=== PATIENT | male | born 1960 ===

== ENCOUNTER 2017-09-19 12:16 | Emergency (ER) | payer OTHER ==
[2017-09-19 12:25] VITALS: BP 113/82; PULSE 84; RESP 20; TEMP 99.9; O2SAT 99
[2017-09-19] MEDS ORDERED: Albuterol-Ipratrop 3 mg / 0.5 (3 ml) UD INH STA (12:34)
[2017-09-19] MEDS ORDERED: Sodium Chloride 0.9% 1,000 ML IV STA (12:35)
--- NOTE | 2017-09-19 12:56 | RAD ---
HISTORY: cp COMPARISON: No prior. TECHNIQUE: Chest PA and lateral FINDINGS: LUNGS: No active pulmonary disease. PLEURA: No significant pleural effusion identified. No pneumothorax apparent. CARDIOVASCULAR: Normal. OSSEOUS STRUCTURES: No significant abnormalities. VISUALIZED UPPER ABDOMEN: Normal. OTHER FINDINGS: None. IMPRESSION: No active disease.
--- NOTE | 2017-09-19 13:11 | ED PDOC ---
HPI: General Adult Time Seen by Provider: 09/19/17 12:31 Chief Complaint (Nursing): Flu-like Symptoms Chief Complaint (Provider): Flu-like Symptoms History Per: Patient History/Exam Limitations: no limitations Onset/Duration Of Symptoms: Days (x 4) Current Symptoms Are (Timing): Still Present Additional Complaint(s): Mr. Alvarez is a 56 year old male, with a history of cardiac stent placement, who presents to the emergency department with flu-like symptoms for 4 days. Patient reports symptoms started out with a cold. Patient reports symptoms are associated with coughing and body aches that developed 2 days ago. Patient states he developed back pain today. Patient reports post-tussive chest pain. Reports subjective fever for 2 days. Denies having asthma, nausea, vomiting, headache or shortness of breath. PMD: No Family Provider Past Medical History Reviewed: Historical Data, Nursing Documentation, Vital Signs Vital Signs: Last Vital Signs Temp 99.9 F H 09/19/17 12:20 Pulse 84 09/19/17 12:20 Resp 20 09/19/17 12:20 BP 113/82 09/19/17 12:20 Pulse Ox 99 09/19/17 13:53 - Medical History PMH: No Chronic Diseases Denies: Asthma - Surgical History Other surgeries: heart stent - Family History Family History: States: Unknown Family Hx - Home Medications Home Medications: Ambulatory Orders Medication Instructions Recorded Albuterol 0.083% [Albuterol 0.083% 2.5 mg IH Q8 PRN #21 neb 09/19/17 Inhal Yanira (2.5 mg/3 ml) UD] Mask, Face [Nebulizer Aerosol Mask 1 dev XX PRN PRN #1 dev 09/19/17 Adult] Nebulizer [Aeroeclipse II] 1 each MC Q8 PRN #1 each 09/19/17 Oseltamivir [Tamiflu] 75 mg PO BID #9 cap 09/19/17 Promethazine/Codeine 5 ml PO Q12 PRN #100 ml 09/19/17 [Codeine/Promethazine 10 MG/5 Ml-6.25 MG/5 Ml] - Allergies Allergies/Adverse Reactions: Allergies Allergy/AdvReac Type Severity Reaction Status Date / Time No Known Allergies Allergy Verified 09/19/17 12:20 Review of Systems ROS Statement: Except As Marked, All Systems Reviewed And Found Negative Constitutional: Positive for: Fever (Subjective), Other (Body aches) Cardiovascular: Positive for: Chest Pain (Post-tussive) Respiratory: Positive for: Cough. Negative for: Shortness of Breath Gastrointestinal: Negative for: Nausea, Vomiting Neurological: Negative for: Headache Physical Exam - Reviewed Nursing Documentation Reviewed: Yes Vital Signs Reviewed: Yes - Physical Exam Appears: Positive for: Well Head Exam: Positive for: ATRAUMATIC, NORMAL INSPECTION, NORMOCEPHALIC Skin: Positive for: Normal Color, Warm, Dry Eye Exam: Positive for: Normal appearance ENT: Positive for: Nasal Congestion Neck: Positive for: Normal Cardiovascular/Chest: Positive for: Regular Rate, Rhythm Respiratory: Positive for: Wheezing (Upper left lobe) Gastrointestinal/Abdominal: Positive for: Normal Exam Extremity: Positive for: Normal ROM. Negative for: Deformity Neurologic/Psych: Positive for: Alert, Oriented (x 3) - Laboratory Results Result Diagrams: 09/19/17 13:30 09/19/17 13:30 - ECG O2 Sat by Pulse Oximetry: 99 (RA) Pulse Ox Interpretation: Normal - Progress ED Course And Treament: CXR: NAD EKG: NSR 78 BPM; NO ECTOPY NO ACUTE CHANGES DUONEB X 1 DOSE NS 1 LITER WIDE OPEN TAMIFLU 75MG Medical Decision Making Medical Decision Making: Time: 12:33 Plan: - Venous Blood Gas Shock Panel - EKG - CMP - Troponin I - CBC - Chest X-Ray - Duoneb 3 mg/0.5 mg (3 ml) UD - Sodium Chloride 0.9% 1,000 ml IV 500 mls/hr - Peak Flow Pre/Post Treatment - Influenza A B Time: 12:55 Chest X-Ray FINDINGS: LUNGS: No active pulmonary disease. PLEURA: No significant pleural effusion identified. No pneumothorax apparent. CARDIOVASCULAR: Normal. OSSEOUS STRUCTURES: No significant abnormalities. VISUALIZED UPPER ABDOMEN: Normal. OTHER FINDINGS: None. IMPRESSION: No active disease. Time: 13:10 - Tamiflu 75 mg PO STAT (-) for influenza a/b Scribe Attestation: Documented by Chico Gonzales, acting as a scribe for Derrick Devine PA-C. Provider Scribe Attestation: All medical record entries made by the Scribe were at my direction and personally dictated by me. I have reviewed the chart and agree that the record accurately reflects my personal performance of the history, physical exam, medical decision making, and the department course for this patient. I have also personally directed, reviewed, and agree with the discharge instructions and disposition. Disposition - Clinical Impression Clinical Impression: Influenza-like symptoms - Patient ED Disposition Is Patient to be Admitted: No - Disposition Disposition: Routine/Home Disposition Time: 14:55 Condition: FAIR Prescriptions: Albuterol 0.083% [Albuterol 0.083% Inhal Yanira (2.5 mg/3 ml) UD] 2.5 mg IH Q8 PRN #21 neb PRN Reason: Cough Mask, Face [Nebulizer Aerosol Mask Adult] 1 dev XX PRN PRN #1 dev PRN Reason: Cough Nebulizer [Aeroeclipse II] 1 each MC Q8 PRN #1 each PRN Reason: Shortness Of Breath Oseltamivir [Tamiflu] 75 mg PO BID #9 cap Promethazine/Codeine [Codeine/Promethazine 10 MG/5 Ml-6.25 MG/5 Ml] 5 ml PO Q12 PRN #100 ml PRN Reason: Cough Instructions: Influenza (ED) Forms: [employer] (Romansh) Print Language: YORUBA
[2017-09-19 13:28] LABS: VENOUS BLOOD GAS PCO2 59 mmHg (40-60); VENOUS BLOOD GAS PO2 17 mm/Hg (30-55); VENOUS BLOOD PH 7.34 (7.32-7.43)
[2017-09-19] MEDS ORDERED: Albuterol-Ipratrop 3 mg / 0.5 (3 ml) UD ONE (13:29)
[2017-09-19 13:44] LABS: BASO # 0.1 K/uL (0.0-0.2); BASO % 2.1 % (0.0-2.0); EOS # 0.4 K/uL (0.0-0.7); EOS % 7.3 % (0.0-4.0); HEMOGLOBIN 14.9 g/dL (12.0-18.0); LYMPH # 0.8 K/uL (1.0-4.3); LYMPH % 14.4 % (20.0-40.0); MEAN CELL VOLUME 88.7 fl (80.0-94.0); MEAN CORPUSCULAR HEMOGLOBIN 29.4 pg (27.0-31.0); MEAN CORPUSCULAR HGB CONC 33.1 g/dL (33.0-37.0); MEAN PLATELET VOLUME 7.4 fl (7.2-11.7); MONO # 0.9 K/uL (0.0-0.8); MONO % 15.1 % (0.0-10.0); NEUT # 3.4 K/uL (1.8-7.0); NEUT % 61.1 % (50.0-75.0); RBC 5.06 Mil/uL (4.40-5.90); RED CELL DISTRIBUTION WIDTH 13.3 % (11.5-14.5); WHITE BLOOD COUNT 5.6 K/uL (4.8-10.8)
[2017-09-19 14:00] LABS: ALB/GLOB RATIO 1.1 (1.0-2.1); ALBUMIN 4.2 g/dL (3.5-5.0); ALT/SGPT 51 U/L (21-72); AST/SGOT 42 U/L (17-59); BLOOD UREA NITROGEN 11 mg/dl (9-20); CALCIUM 9.3 mg/dL (8.4-10.2); GFR AFRICAN-AMERICAN > 60; GFR NON-AFRICAN AMERICAN > 60
--- NOTE | 2017-09-20 11:28 | CARD ---
APPROVED REPORT EKG Measurement Heart [id number] <Conclusion> Normal sinus rhythm Normal ECG
== END 2017-09-19 15:46 | disposition home or self-care (01) ==
LOC: H.ER 12:16
DX: R50.9 Fever, unspecified (principal); R05 Cough; R07.89 Other chest pain; Z95.5 Presence of coronary angioplasty implant and graft
CPT/HCPCS: 71046; 80053; 82803; 84484; 85025; 87804; 93005; 96360; 96361; 99282; J7040